=== PATIENT | male | born 1960 | race Caucasian/White ===

== ENCOUNTER 2024-03-04 12:54 | Inpatient (IN) | payer OTHER, SELFPAY ==
[2024-03-04] VITALS (9 sets, daily range): BP systolic 98–133; BP diastolic 72–99; BMI 24.3; BMI 23.5
[2024-03-04 08:33] LABS: % Basophils 0.4 % (0-2); % Eosinophils 7.6 % (0-6); % Immature Granulocytes 0.6 % (0-0.5); % Lymphocytes 14.3 % (20.5-51.1); % Monocytes 6.3 % (1.7-9.3); % Neutrophils 70.8 % (42.2-75.2); Absolute Basophils 0.1 10^3/uL (0-0.2); Absolute Eosinophils 1.3 10^3/uL (0-0.7); Absolute Immature Granulocytes 0.1 10^3/uL (0-0.05); Absolute Lymphocytes 2.4 10^3/uL (1.2-3.4); Absolute Monocytes 1.1 10^3/uL (0.1-0.6); Hematocrit 42.3 % (39.0-52.0); Hemoglobin 14.5 g/dL (13.0-18.0); Mean Corp Hgb Conc. 34.3 g/dL (33.0-37.0); Mean Corpuscular Hgb 30.6 pg (27.0-31.0); Mean Corpuscular Volume 89.2 fL (80.0-94.0); Mean Platelet Volume 9.3 fL (7.4-10.4); Nucleated Red Blood Cells % 0 % (-); Platelet Count 328 10^3/uL (130-400); Red Blood Cell Count 4.74 10^6/uL (4.70-6.10); Red Cell Dist. Width 13.4 % (11.5-14.5); White Blood Cell Count 16.9 10^3/uL (4.8-10.8)
[2024-03-04 08:51] LABS: ALT (SGPT) 16 U/L (0-50); AST (SGOT) 17 U/L (17-59); Albumin 4.3 g/dl (3.5-5.0); Alkaline Phosphatase 67 U/L (38-126); Blood Urea Nitrogen 21 mg/dl (9-20); Calcium 9.9 mg/dl (8.4-10.2); Carbon Dioxide 32 mmol/L (22-30); Chloride 103 mmol/L (98-107); Glucose 75 mg/dl (70-99); Potassium 4.1 mmol/L (3.5-5.1); Sodium 143 mmol/L (135-145); Total Bilirubin 0.6 mg/dl (0.2-1.3); Total Protein 6.8 g/dl (6.3-8.2); eGFR > 60.00
--- NOTE | 2024-03-04 10:45 | EDRN ---
Dr. Washington in to see pt and placed pt on oxygen at 2lpm via NC.
--- NOTE | 2024-03-04 10:52 | ED.GENMED ---
History of Present Illness
General
Chief Complaint: Breathing Problem
Source: patient
Exam Limitations: none
Time Seen by Provider: 03/04/24 10:20
Nursing documentation reviewed up to this point in time: agreed with
History of Present Illness
History of Present Illness:
64 male cough congestion wheeze for few weeks seen at the urgent care given steroids and amoxicillin had been on steroids that he had previously for nasal polyps he has had multiple nasal polyp surgery never formally diagnosed with asthma
Using Primatene Mist, was given albuterol at the urgent care
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
Has a pulse ox at home his pulse ox went down to the mid the low 80s
Past History
Past History
ED Past Medical History: Other (Nasal polyps possible asthma)
ED Past Surgical History: Other (Nasal polyp)
Social History
Tobacco: Non-smoker
Alcohol: None
Drug: None
Personal:
Living: with family
Employment: Employed
Review of Systems
Review of Systems
All Other Systems: Not applicable
Constitutional: Denies fever or fatigue
Respiratory: Reports cough and trouble breathing
Cardiac: Reports no symptoms
ABD/GI: Reports no symptoms
Phy Exam
Physical Exam
Physical Exam:
Physical Exam
General: Dyspneic 64 male
Neck: No jaundice
Heart: s1/s2 regular rate and rhythm, no murmur. equal radial pulses.
Lungs: Fair air movement with diffuse with
Abdomen: Nontender
Neuro: alert and oriented. no focal neurological deficits
Skin: no rash
Psychiatric: well kept. interactive and cooperative
Extremities: no edema.
Scores
Heart Failure Risk
Heart Failure Risk Score: Not Applicable
Course
Orders/Labs/Results
Orders:
Orders
03/04/24 08:07
CXR2 [CR Chest - 2 Views ] Urgent
Comment:
Reason For Exam: SOB
03/04/24 08:15
Comprehensive Metabolic Panel Urgent
03/04/24 08:16
CBC/With Diff [Complete Blood Count/With Diff] Urgent
03/04/24 08:19
Electrocardiogram (*1) Urgent
Reason for Study: Shortness of Breath
EKG- Treatment ONCE
03/04/24 10:45
Albuterol Sulfate [Ventolin Nebules] 15 mg INH R NOW STA
Dexamethasone Sod Phosphate [Decadron] 20 mg IV NOW STA
03/04/24 11:14
COVID-19 Antigen Urgent
Source: Nasal Swab
Influenza A+B Rapid Molecular Urgent
OSORIO Source: Nasal Swab
Specimen Description:
Abnormal Lab Results
03/04/24 03/04/24
08:15 08:16
WBC 16.9 H 10^3/uL
(4.8-10.8)
Abs Immat Gran (auto) 0.1 H 10^3/uL
(0-0.05)
Absolute Neuts (auto) 12.0 H 10^3/uL
(1.4-6.5)
Absolute Monos (auto) 1.1 H 10^3/uL
(0.1-0.6)
Absolute Eos (auto) 1.3 H 10^3/uL
(0-0.7)
Immature Gran % 0.6 H %
(0-0.5)
Lymphocytes % 14.3 L %
(20.5-51.1)
Eosinophils % 7.6 H %
(0-6)
Carbon Dioxide 32 H mmol/L
(22-30)
BUN 21 H mg/dl
(9-20)
03/04/24 08:16
03/04/24 08:15
Vital Signs
Initial and Last Documented VS:
Initial Vital Signs
Temp Pulse Resp BP Pulse Ox
97.8 F 102 18 133/96 95
03/04/24 08:01 03/04/24 08:01 03/04/24 08:01 03/04/24 08:01 03/04/24 08:01
Last Documented Vital Signs
Temp Pulse Resp BP Pulse Ox
97.8 F 113 11 131/99 95
03/04/24 08:01 03/04/24 12:07 03/04/24 12:07 03/04/24 12:07 03/04/24 12:07
MDM/Problems Addressed
Differential Diagnosis Includes:
Asthmatic bronchitis, pneumonia influenza COVID
MDM/Problems Addressed:
Asthma
Chronic conditions affecting care:
Sinus polyp
Chronic conditions affecting care: Asthma
Acute Exacerbation and/or Progression of Chronic Illness: Asthma
*Radiology
Radiology exam reviewed: radiology read reviewed
*Pulse Oximetry
Patient hypoxic: yes
*[employer] Interpretation
Rate: normal
Interpretation: normal
Heart Rate: 78
Rhythm: sinus
*Critical Care Note
Total Time (30-74mins, 75-104mins- exclusive of procedures): Not Applicable
Update Note
Update Note:
Update peak flow 180
Eosinophils noted suspect he has allergic asthma with sinus polyps already been on steroids Primatene albuterol given hour-long neb high-dose IV steroids
Update still wheezing with rhonchi requiring oxygen believe he would benefit from admission consideration for specialty consultation
ED Attending Note
-
Portions of this chart may have been created with voice recognition software.� Occasional wrong word or��sound alike� substitutions may have occurred due to the inherent limitations of voice recognition software.
Discharge Plan
Departure
Patient Disposition: Admit
Date of Disposition: 03/04/24
Time of Disposition: 12:14
Admit to: Med/Surg
Presentation/result/management discussed w/ accepting MD/DO: Hospitalist
Condition: Fair
Discharge Problem:
Acute asthmatic bronchitis, Eosinophils increased
Referrals:
NONE,* [Family Provider] -
Interventions
Interventions:
*Risk Screen - Suicide Last Done: 03/04/24 08:01
*General Assessment Last Done: 03/04/24 10:46
*Neglect/Abuse Screening Last Done: 03/04/24 08:01
ED- Fall Risk Assessment Last Done: 03/04/24 10:57
*ED COVID-19 Vaccine History Last Done: 03/04/24 10:46
ED- Cardiac Assessment Last Done: 03/04/24 10:57
ED- Pulmonary Assessment Last Done: 03/04/24 10:57
Discharge Date and Time
Print Language: AZERI
[2024-03-04] MEDS: VENTOLIN NEBULES 15 MG INH (10:59)
[2024-03-04] MEDS: DECADRON 20 MG IV (11:05)
--- NOTE | 2024-03-04 12:10 | EDRN ---
Dr. Washington in room w/ pt at this time.
--- NOTE | 2024-03-04 12:12 | EDRN ---
Dr. Washington in room w/ pt at this time.
--- NOTE | 2024-03-04 12:23 | HPS.HSE ---
Family Physician
-
Family Physician: * NONE
Chief Complaint
-
Cough and Shortness of Breath
History of Present Illness
Patient is a 64 y/o male who presents with persistent cough and shortness of breath. Patient reports he was seen at an urgent care two days ago and was given a coarse of antibiotics and steroids. He reports despite these measure symptoms have
persisted. Yesterday and today he noted his pulse ox to be low which prompted him to come to the emergency department for evaluation. He notes intermittent episodes of similar symptoms that have been getting progressive worse over the past year.
Symptoms are worse at night. Previously he was using Primatene mist a few times a week, and making modifications to his diet which seems to help. However over the past week has been using the Primatene mist twice a night without much improvement in
his symptoms. He denies fevers, sweats or chills.
Medical History
Past Medical History
Past Medical History: Reports Other
Additional Past Medical History:
Nasal Polyps
Nephrolithiasis
Past Surgical History: Reports Other
Additional Past Surgical History:
Nasal Polyp Surgery
Kidney Stone
Social History
Tobacco: Non-smoker
Alcohol: Occasional
Family History
Family History: Not pertinent
Allergies / Home Medications
Allergies reflects when Allergies were last updated in [facility].
Home Medications with original date entered in [facility]
Allergy/Medication List:
Allergies
Allergy/AdvReac Type Severity Reaction Status Date / Time
sulfites Allergy Shortness Uncoded 03/04/24 08:01
of Breath
Home Medications
albuterol sulfate 90 mcg/actuation aerosol inhaler 2 puff inhalation R Q4HPRN PRN sob 03/04/24
amoxicillin 875 mg tablet 875 mg PO BID 03/04/24
guaifenesin 100 mg/5 mL oral liquid 200 mg PO Q4HPRN PRN cough 03/04/24
prednisone 50 mg tablet 50 mg PO DAILY 03/04/24
Review of Systems
-
A 12 point ROS was completed and negative except as noted: Yes
Constitutional: Denies Fever or Chills
Respiratory: Reports Cough and Trouble Breathing
Cardiac: Denies Chest Pain or Palpitations
Abdomen/GI: Denies Abdominal Pain, Nausea or Vomiting
Physical Exam
Vital Signs
Vital Signs
Temp Pulse Resp BP Pulse Ox
97.8 F 113 11 131/99 95
03/04/24 08:01 03/04/24 12:07 03/04/24 12:07 03/04/24 12:07 03/04/24 12:07
Physical Exam
General: Comfortable and Conversant
HEENT: Anicteric, Moist mucous membranes and Oxygen (Nasal Cannula)
Respiratory: Other (Few wheezes which cleared with cough; No Rales; No Accessory Muscle Use)
Cardiac: S1/S2, Regular Rhythm and Tachycardia
GI: Soft, Non Tender and Non Distended
Rectal: Deferred by Provider
Musculoskeletal: No Clubbing, No Cyanosis and No Edema
Skin: Warm and Dry
Neuro: Awake, Alert, Oriented and Nonfocal/grossly intact
Psych: Calm
Laboratory Results
-
03/04/24 08:16
03/04/24 08:15
Laboratory Results
Total Bilirubin 0.6 mg/dl (0.2-1.3) 03/04/24 08:15
AST 17 U/L (17-59) 03/04/24 08:15
ALT 16 U/L (0-50) 03/04/24 08:15
Alkaline Phosphatase 67 U/L (38-126) 03/04/24 08:15
Data Reviewed
-
Diagnostic Radiology: Report Reviewed by me
Lab Data: Labs Reviewed by me
Impression/Plan
-
Acute Asthmatic Bronchitis
-Continue Decadron 4mg Q8H
-Continue Duoneb QID and PRN
-Monitor pulse ox
DVT proph: Lovenox
Code Status: Full Code
[2024-03-04 12:53] LABS: COVID-19 Antigen Negative (Negative)
--- NOTE | 2024-03-04 13:15 | W.PN.UPDATE ---
Update Note
Progress Note Update
This note serves as an addendum to the H&P by chief maintenance supervisor GOKUL Nola VALENTIN
64M non smoker no established HX asthma, on OTC Primatene INH ( Epi INH ) pw worsening sob , dry cough
he was seen at [facility]. Rx with Albuterol INH, Prednisone and PO Augmentin. P
Reports Ox 85 at home.
POx 95 on 2L NC at ER.
VS:
Vital Signs
Temp Pulse Resp BP Pulse Ox
97.8 F 113 11 131/99 95
03/04/24 08:01 03/04/24 12:07 03/04/24 12:07 03/04/24 12:07 03/04/24 12:07
PE:
NAD , nontoxic
no JVD
Chest; occasional wheeze, cleared with cough , symmetric AE, no tight AE
Cor: tachycardia
No peripheral edema
Data
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
CXR : NAD
NEG Covid
NEG Flu A & B
ASSESSMENT & PLAN
Asthmatic bronchitis despite s/p hr long Albuterol neb , PO stroids
Still SoB and cough with deep breathing
Non productive cough
- cont DuoNeb qid and PRN
- cont IV Decadron 4mg q8h
- POx goal > 94 - titrate 2 as needed
- Hold further ABx
DVT Px: LMWH
Code: full code
IP MS
--- NOTE | 2024-03-04 14:40 | EDRN ---
Spouse has arrived and pt awakened. Pt OOB to BR and back. Pt feeling less SOB at this time. Pt given cup of water w/out ice as per his preference at this time as well.
[2024-03-04] MEDS: DUONEB INH (17:25)
[2024-03-04] MEDS: DUONEB 3 ML INH (19:52)
[2024-03-05 06:00] VITALS: BMI 23.7
[2024-03-05 07:00] VITALS: BP 116/79
[2024-03-05 07:25] LABS: % Basophils 0.1 % (0-2); % Eosinophils 0.1 % (0-6); % Immature Granulocytes 0.6 % (0-0.5); % Lymphocytes 10.7 % (20.5-51.1); % Monocytes 5.3 % (1.7-9.3); % Neutrophils 83.2 % (42.2-75.2); Absolute Immature Granulocytes 0.1 10^3/uL (0-0.05); Absolute Lymphocytes 1.4 10^3/uL (1.2-3.4); Absolute Monocytes 0.7 10^3/uL (0.1-0.6); Absolute Neutrophils 11.2 10^3/uL (1.4-6.5); Hematocrit 38.9 % (39.0-52.0); Hemoglobin 13.3 g/dL (13.0-18.0); Mean Corp Hgb Conc. 34.2 g/dL (33.0-37.0); Mean Corpuscular Hgb 31.3 pg (27.0-31.0); Mean Corpuscular Volume 91.5 fL (80.0-94.0); Mean Platelet Volume 9.9 fL (7.4-10.4); Nucleated Red Blood Cells % 0 % (-); Platelet Count 292 10^3/uL (130-400); Red Blood Cell Count 4.25 10^6/uL (4.70-6.10); Red Cell Dist. Width 13.6 % (11.5-14.5); White Blood Cell Count 13.4 10^3/uL (4.8-10.8)
[2024-03-05 07:53] LABS: Blood Urea Nitrogen 22 mg/dl (9-20); Calcium 9.3 mg/dl (8.4-10.2); Carbon Dioxide 25 mmol/L (22-30); Chloride 103 mmol/L (98-107); Estimated Creatinine Clearance 112 ml/min; Glucose 99 mg/dl (70-99); Potassium 4.7 mmol/L (3.5-5.1); Sodium 142 mmol/L (135-145); eGFR > 60.00
[2024-03-05] MEDS: DUONEB 3 ML INH ×3 (08:05→15:45)
--- NOTE | 2024-03-05 08:49 | W.PN.HOSP.TC ---
Today's Communication/Plan
-
Steroids
Assessment / Plan
Assessment / Plan
Physical exam:
General: No Apparent Distress
HEENT: Normocephalic, Atraumatic and Moist Mucous Membranes
Respiratory: Clear to Auscultation with few rhonchi in the bases; Negative Wheezes, Rales
Cardiac: Regular Rhythm and S1/S2
GI: Soft, Nontender and Nondistended
Musculoskeletal: No Clubbing, No Cyanosis and No Edema
Neuro: Awake, Alert and Oriented
Psych: Calm
A/P:
Acute Asthmatic Bronchitis
-Continue Decadron 4mg Q8H- can prob decrease doses but will defer to pulm
-Continue Duoneb QID and PRN
-Monitor pulse ox
-Discussed with at bedside who inquires about antibiotic use. No strong indication at the moment since he remains afebrile and no images or cultures consistent with bacterial infection. Plan I let them know that if pulmonary feels antibiotics
is required then we will reassess.
-Pulmonary eval pending and discharge once cleared by pulmonary as well.
GERD
Continue PPI
DVT proph: Lovenox
Code Status: Full Code
Anticipated Discharge: 24 - 48 hours
Subjective/Interval History
-
Date of Service: March 05, 2024
Patient still has some cough but overall feels better. Pulse ox normal on room air. Afebrile.
Objective Data
-
Labs:
Laboratory Results
03/05/24
06:10
WBC 13.4 H
Hgb 13.3
Hct 38.9 L
Plt Count 292
Sodium 142
Potassium 4.7
Chloride 103
Carbon Dioxide 25
BUN 22 H
Creatinine 0.7
Glucose 99
Calcium 9.3
Vital Signs:
Vital Signs
Temp Pulse Resp BP Pulse Ox
97.9 F 79 17 116/79 94
03/05/24 07:00 03/05/24 08:09 03/05/24 08:09 03/05/24 07:00 03/05/24 08:09
[2024-03-05] MEDS: DECADRON 4 MG IV ×2 (09:37→16:43)
--- NOTE | 2024-03-05 13:43 | CM ---
grocery store manager met with patient along with spouse today, patient is for possible discharge, patient lives with spouse and extended family in a multilevel home, per patient he has a 1st floor set up is independent with adl's and ambulation, no dme,
patient does not have a PCP, list of PCP's provided to patient.
Plan; Home no needs
Pharmacy [facility] in [place].
[2024-03-05 15:00] VITALS: BP 127/76
--- NOTE | 2024-03-05 15:49 | CON.PUL ---
Consultation
Consultation Request
Date/Time Consultation Requested: 03/05/2024
Date/Time Consultation Performed: 03/05/2024
Requesting Provider: Dr. Roberto
Performing Provider: Dr. Anson Renae
Reason for Consultation: Asthmatic bronchitis/respiratory sufficiency
Medical History
-
History of Present Illness:
64-year-old man who presented to the hospital complaining of persistent cough on 03/04/2024 also associated with shortness of breath. Apparently went to the urgent care about 2 days ago and was given antibiotics with the steroids. Despite these
continue to be symptomatic. For the last 24 hours noted some low oxygen levels at home. When prompted to come to the emergency room for evaluation.
Over the past year he has reported some similar complaints but it has been worsening.
Reports nocturnal symptoms for many months.
He has been dealing with nasal polyps for over 30 years. At least 6 surgeries in the past.
Has been using albuterol as needed for a few weeks which some relief.
Denies any fever, night sweats, phlegm production, hemoptysis.
Denies any rash.
Past Medical History
Past Medical History: Other (. See assessment and plan)
Past Surgical History: Other (At least 6 nasal polyps surgeries.)
Social History
Tobacco: Non-smoker
Alcohol: Occasional
Drug: None
Family History
Family History: Reviewed & Not Pertinent
Allergies / Home Medications
Allergies
Allergy/AdvReac Type Severity Reaction Status Date / Time
sulfites Allergy Shortness Uncoded 03/04/24 08:01
of Breath
Home Medications
�Medication �Instructions �Recorded �Confirmed �Last Taken �Type
albuterol sulfate 90 mcg/actuation 2 puff inhalation R Q4HPRN PRN sob 03/04/24 03/04/24 03/04/24 History
aerosol inhaler
amoxicillin 875 mg tablet 875 mg PO BID Infection 03/04/24 03/04/24 03/04/24 History
guaifenesin 100 mg/5 mL oral liquid 200 mg PO Q4HPRN PRN cough 03/04/24 03/04/24 03/03/24 History
prednisone 50 mg tablet 50 mg PO DAILY Anti-Inflammatory 03/04/24 03/04/24 03/03/24 History
Review of Systems
-
History Source: Patient
All other systems: Negative unless noted
Vitals / Labs / Diagnostic Testing
Vital Signs
Temp Pulse Resp BP Pulse Ox
97.9 F 87 17 116/79 96
03/05/24 07:00 03/05/24 11:16 03/05/24 11:16 03/05/24 07:00 03/05/24 11:16
Lab Data
03/05/24 06:10
03/05/24 06:10
Microbiology
03/04/24 12:10 Nasal Swab Influenza Types A & B (MARISOL) - Final
Negative for Influenza A & B, NAAT
Negative results must be combined with clinical observations
and patient history.
Nucleic Acid Amplification test (NAAT)performed on the
[employer] platform.
Diagnostic Testing:
Physical Exam
-
HEENT: Normocephalic
Cardiovascular: S1/S2
Respiratory: Clear
GI: Soft and Non Distended
Neurology: Awake, AO x 3 and No Motor Deficits
Skin: Warm
General: Comfortable and Other ( Able to speak in full sentences)
Assessment
-
Cough/wheezing/shortness of breath: Possible asthmatic bronchitis.
Chest x-ray reviewed: Clear lungs
Negative influenza
Negative COVID
Cannot rule out asthma component-not been diagnosed
Peripheral eosinophilia on 03/04/2024 7.6%
Condition present prior admission
Nasal polyps-at least 6 nasal polyp surgeries.
Chronic cough
Kidney stones in the past
Assessment and plan:
Asthmatic bronchitis, clear chest x-ray. Cannot rule out infectious etiologies.
Patient does have history of nasal polyps, peripheral eosinophilia-cannot rule out underlying asthma diagnosis. Patient has been having symptoms for about a year or more.
-
He is clinically better.
Agree with IV corticosteroids for now if he stays in the hospital. Upon discharge prednisone 50 mg X 3 days, 40 mg X 3 days, 30 mg X 3 days, 20 mg X 3 days, 10 mg X 3 days.
DuoNebs 4 times a day while in the hospital.
-
Upon discharge transition to Symbicort 160/4.52 puffs twice a day.
Prescribe Z-Pantera.
Will add montelukast 10 mg daily with history of nasal polyps and peripheral eosinophilia-should be discharged on this medication.
-
Antitussives:
Cepacol lozenges
Will need outpatient pulmonary follow-up.
May be a candidate for biologic therapy.
-
Okay to discharge today.
Information will be left in the chart for follow-up.
Extensive discussion with patient and .
-
[2024-03-05] MEDS: ZITHROMAX 500 MG PO (16:43)
[2024-03-05] MEDS: SINGULAIR 10 MG PO (16:43)
--- NOTE | 2024-03-05 16:59 | W.DCSUMMARY ---
Discharge Summary
Discharge Data
Date of Admission: 03/04/24
Date of Discharge: 03/05/24
-
Pending Results: No
Hospital Course
Patient is 64 years old who came into the hospital with worsening cough and shortness of breath. Patient had persistent cough over the last several days but prior to that he has been dealing with ongoing symptoms for over a year. Pulmonary was
consulted. He was started on IV steroids. Pulmonary felt that it was asthmatic bronchitis but with his history of nasal polyps, peripheral eosinophilia cannot rule out underlying asthma. Pulmonary recommended to switch to oral steroids and
continue with a tapering course as outpatient and also add Symbicort and a course of oral antibiotics with azithromycin and also add montelukast to his regimen. He will have follow-up with outpatient pulmonary. Pulmonary also noticed that he might
be a candidate for biological therapy in the future. Patient otherwise is oxygenating well on room air and feels symptomatically much improved. Pulmonary reached out to me and cleared him for discharge today. He will be discharged in relatively
stable condition today.
Discharge duration: 33 minutes
Discharge Plan
-
Patient Disposition: Home (Routine Discharge)
Discharge Diagnosis/Procedures: Asthmatic bronchitis
Diet: Low Cholesterol
Activity: As tolerated
Blood Work: Please PCP to order CBC, BMP within 1 week
Referrals:
Primary care, provider [Other] (See less than 1 week)
Anson Peterson MD [Active] - in two to four weeks
Prescriptions:
New
azithromycin 250 mg tablet
250 mg PO DAILY 4 Days Qty: 4 0RF
prednisone 10 mg Tablet
See Rx Instructions .ROUTE .COMPLEX Qty: 45 0RF
Rx Instructions:
Take By Mouth:
50 mg daily x3 days, 40 mg daily x3 days,
30 mg daily x3 days, 20 mg daily x3 days,
10 mg daily x3 days
montelukast 10 mg tablet
10 mg PO DAILY Qty: 30 0RF
budesonide-formoterol [Symbicort] 160-4.5 mcg/actuation HFA aerosol inhaler
2 puff inhalation BID Qty: 10.2 0RF
Continued
guaifenesin 100 mg/5 mL Liquid
200 mg PO Q4HPRN PRN (Reason: cough)
albuterol sulfate 90 mcg/actuation HFA aerosol inhaler
2 puff INHALATION R Q4HPRN PRN (Reason: sob)
Discontinued
amoxicillin 875 mg Tablet
875 mg PO BID
Patient Comments:
03/04/24: started 03/02/24, to take for 10 days
prednisone 50 mg Tablet
50 mg PO DAILY
Patient Comments:
03/04/24: started 03/02/24, to take for 5 days
Discharge Orders:
Discharge Patient (As Directed); Ordered 03/05/24
Ordered By: Reji Roberto
Discharge Date and Time
Discharge Date/Time: 03/05/24 18:58
Print Language: RWANDAN
== END 2024-03-05 18:58 | disposition home or self-care (01) | DRG 203 ==
LOC: 4 WEST ACU 12:54
PROVIDERS: Emergency Medicine; Physician Assistant Medical; ADMITTING PHYSICIAN Internal Medicine; ATTENDING PHYSICIAN Hospitalist; CONSULT PHYSICIAN Internal Medicine Critical Care Medicine; EMERGENCY PHYSICIAN Emergency Medicine
DX: J45.909 Unspecified asthma, uncomplicated (principal); K21.9 Gastro-esophageal reflux disease without esophagitis; Z11.52 Encounter for screening for COVID-19
CPT/HCPCS: 71046; 80048; 80053; 85025; 87502; 87811; 93005; 94640; 96374; 99285